=== PATIENT | male | born 1970 | race Caucasian/White ===

== ENCOUNTER 2018-04-21 09:37 | Observation (INO) ==
[2018-04-21] MEDS ORDERED: LORazepam 1 MG TAB PO STA ×2 (09:49→10:27)
[2018-04-21] MEDS ORDERED: SODIUM CHLORIDE 0.9% 1000ML 1,000 ML IV ONE (09:51)
[2018-04-21 10:07] LABS: Basophils # (auto) 0.01 K/uL (0-0.2); Basophils % (auto) 0.1 %; Eosinophils # (auto) 0.05 K/uL (0-0.5); Eosinophils % (auto) 0.5 %; Hematocrit (blood only) 45.4 % (42-52); Hemoglobin 15.8 g/dL (14.0-18.0); Immature Granulocytes # (auto) 0.02 K/uL (0.00-0.02); Immature Granulocytes % (auto) 0.2 %; Lymphocytes # (auto) 0.99 K/uL (1.2-3.4); Lymphocytes % (auto) 10.5 %; Mean Corpuscular Hgb Conc 34.8 g/dL (32-36); Mean Corpuscular Volume 90.1 fL (80-100); Mean Platelet Volume 9.6 fL (7.4-10.4); Monocytes # (auto) 0.42 K/uL (0.11-0.59); Monocytes % (auto) 4.5 %; Neutrophils # (auto) 7.93 K/uL (1.4-6.5); Neutrophils % (auto) 84.2 %; Platelet Count 278 K/uL (130-400); RDW Coefficient of Variation 12.5 % (11.5-14.5); RDW Standard Deviation 40.9 fL (36.4-46.3); Red Blood Count 5.04 M/uL (4.7-6.1); White Blood Count 9.42 K/uL (4.8-10.8)
[2018-04-21 10:10] LABS: Chloride 103 mmol/L (98-107); Potassium 3.7 mmol/L (3.5-5.1); Sodium 132 mmol/L (136-145)
[2018-04-21 10:15] LABS: Alanine Aminotransferase 57 U/L (12-78); Albumin Level 4.3 gm/dl (3.4-5.0); BUN Creatinine Ratio 12.1 (10-20); Blood Urea Nitrogen 13 mg/dl (7-18); Carbon Dioxide 22 mmol/L (21-32); Creatinine Clr Calc Pharmacy 97.3 ml/min; Est GFR (African American) 92.9; Est GFR (Non-African American) 80.2; Glucose 153 mg/dl (70-99); Magnesium 1.8 mg/dl (1.8-2.4)
[2018-04-21 10:26] LABS: Albumin Globulin Ratio 1.2 (0.9-2); Alkaline Phosphatase 43 U/L (45-117); Aspartate Aminotransferase 26 U/L (15-37); Bilirubin,Total 0.7 mg/dl (0.2-1); Globulin 3.7 gm/dl (2.5-4.0); Troponin I < 0.015 ng/ml (0-0.045)
--- NOTE | 2018-04-21 10:29 | XRay Report ---
XR chest 1V portable CLINICAL HISTORY: 47 years-old Male presenting with Chest Pain. TECHNIQUE: Portable upright AP view of the chest was obtained. COMPARISON: None. FINDINGS: Cardiac silhouette top normal in size. Lungs and pleural spaces clear. Degenerative changes of the th oracic spine. Upper abdomen normal. IMPRESSION: 1. No acute cardiopulmonary disease. Electronically signed by: Adam Rose M.D. 04/21/2018 10:28 AM
[2018-04-21] MEDS ORDERED: CITALOPRAM 20 MG TAB PO STA (12:57)
[2018-04-21] MEDS ORDERED: METOPROLOL TARTRATE 1 MG/ML VIAL IV PRN (13:02)
[2018-04-21] MEDS ORDERED: METOPROLOL TARTRATE 1 MG/ML VIAL IV STA (13:02)
--- NOTE | 2018-04-21 13:02 | History & Physical Report ---
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 Trop neg x1, serials pending EKG with T wave inversions laterally Stress ECHO pending, although if unable to obtain over the weekend can likely have CM set up outpt if EKG returns to normal (2) Abnormal EKG: EKG with T wave inversions laterally Stress ECHO Monitor on tele (3) Anxiety: Likely the cause of above Hx of citalopram use that was d/c'd due to loss of insurance Will resume today and advised that this is on the [employer] $4 plan Should likely become involved with outpt mental health services (4) Elevated BP without diagnosis of hypertension: No prior hx Related to anxiety vs true HTN Metoprolol PRN and monitor (5) Depression: Seems there is likely an underlying depression as well States that citalopram worked for both in the past As above Answer "I've had a good run." when asked about code status and elected for DNR/ DNI. When his mother questioned this decision, he stated "it is my choice". (6) Tobacco use disorder: Some day smoker Declines need for nicotine patch (7) Alcohol use: Likely binge drinking to self medicate No hx of withdrawal issues or daily drinking (8) Does not have health insurance: Advised that CM will help to arrange [facility] appt Also advised that citalopram is on [employer] $4 list (9) DVT prophylaxis: Ambulation as likely short duration of admission History of Present Illness Primary Care Provider: Junior Porras, DO 47 y/o M c/o chest soreness and SOB. Pt states that he has been under a lot of stress lately after his mother was recently hospitalized and d/c'd back to home with many changes to her medications, home nursing and therapies, and has generally needed more assistance. Pt states that on after he had his mother situated for the night in bed, he was trying to relax. He had several beers, several glasses of wine, and some Johnathon Casillas while he was watching music videos on [employer]. Pt states that "before I knew it, it was 7 or 8 in the morning and I hadn't slept". He states that he went upstairs to get breakfast and medications for his mother. He went outside to take care of the walk in preparation for [facility] to arrive for the morning and had no issues with any of this. Shortly after, he tried to lay down to relax and found that his heart was pounding rapidly in his chest and he felt very anxious. Then he was alerted that there was water leaking from a very old deep freezer in their basement, so he went downstairs to investigate this. He was getting very anxious about the possibility of their food spoiling, repair or replacement bills, etc and he noted that his heart racing and SOB were getting worse. He developed numbness to his L hand, sweating, foggy thought processing, and felt unsteady on his feet. He was ultimately able to troubleshoot and repair the freezer and thought he would relax, but then became further anxious worrying that the motor might overheat while the freezer recooled. He was also able to remedy this situation, but his anxiety continued. He tried to rest and was unable to do so. He thought that maybe alcohol was causing some of the heart racing and so he did not seek care yesterday. He was unable to sleep last night at all and his sx were worse this AM with the addition of chest soreness, so he came to the ED. Pt was given ativan x2 and is feeing much better. Pt states he has has panic attacks in the past, but nothing to this severity or extent. He states maybe two prior episodes and he was able to "bring myself down". He states that he used to be on citalopram when he followed with Dr. Porras. He states he was taking this for depression and anxiety and that it did help him. Pt stopped following with Dr. Porras after he had to quit his job to help take care of his father who had many medical issues, including 6 types of cancer, so he lost his health insurance. His father , but his mother has had health issues and so pt is still not working. Allergies Allergy/AdvReac Type Severity Reaction Status Date / Time No Known Allergies Allergy Unverified 04/21/18 10:48 Home Medications Home Medications Medication Instructions Recorded Confirmed Type No Known Home Medications 04/21/18 04/21/18 History Past Med/Surg History Medical History No known health problems Social History Current Living Situation: Parent Other Information That Helps Us Care for You: No Feels Safe at Home: Yes Smoking Status: Current some day smoker Cigarettes per Day: social use only, 1 pack lasts 3 weeks or more Hx Alcohol Use: Yes (binge drinking 2x per week) Alcohol type: beer, wine and hard liquor Alcohol Intake Frequency: a few times a week Hx Substance Use: No Beliefs That Will Affect Care: None Preferred Language: Czech Review of Systems Pertinent positives and negatives reviewed in HPI--all others negative Physical Exam 2 Vital Signs (Past 24 Hours): Last Vital Signs Temp 36.3 C L 04/21/18 09:41 Pulse 63 04/21/18 11:44 Resp 17 04/21/18 11:44 BP 171/94 H 04/21/18 11:44 Pulse Ox 98 04/21/18 11:44 Constitutional: WD/WN, vitals as above + obese Eyes: normal visual cook by confrontation and + anicteric sclerae Neck: normal visual inspection and trachea midline Respiratory: normal respiratory effort, lungs clear to auscultation Cardiovascular: Rate/Rhythm: regular rate and regular rhythm Gastrointestinal (Abdomen): Inspection/Auscultation: abdomen not distended Percussion/Palpation: abdomen soft; abdomen nontender Musculoskeletal: Head/Neck/Chest: normocephalic and head atraumatic negative for edema, peripheral pulses intact Skin: no rashes, warm and dry Neurologic: awake; not confused Speech / Cognition: normal speech Psychiatric: A+Ox3, euthymic affect Code Status & VTE Plan Code Status DNR/DNI--"I've had a good run." When his mother questioned this decision, he stated "it is my choice". VTE Prophylaxis Plan VTE Prophylaxis will be ordered: No
[2018-04-21] MEDS ORDERED: ONDANSETRON INJ 2 MG/ML 2 ML VIAL IV PRN (14:19)
[2018-04-21] MEDS ORDERED: ACETAMINOPHEN 325 MG TAB PO PRN (14:19)
[2018-04-21] MEDS ORDERED: MAGNESIUM HYDROXIDE SUSP 30 ML UDC PO PRN (14:19)
--- NOTE | 2018-04-21 15:49 | Emergency Department Note ---
Entered by Sarwat Doss acting as a scribe for History of Present Illness General Chief complaint: Shortness of Breath/Dyspnea Stated complaint: sob Source: patient History of Present Illness Provider complaint: chest pain Onset (ago): day(s) (yesterday around 1530) Location: chest Pain Consistency: + other (worsening) Quality: + dull Associated symptoms: + denies other symptoms (recent trauma to chest, dyspnea, calf tenderness), + nausea/vomiting (+nausea) and + other (shaky, anxious) The patient is a 47 year old male who presents to the Emergency Room with complaints of worsening chest pain that began around 1530 yesterday. The patient reports that his heart started racing after noticing that his freezer at home was leaking. He describes his pain as dull. The patient reports that he has had minor anxiety attacks before, but states that he can typically talk them down from it. The patient denies a history of cardiac issues of any kind and denies any recent trauma to his chest. The patient admits to being shaky and nauseous and states he has not eaten much since yesterday. He denies any dyspnea or calf tenderness. He states that he has been feeling anxious since the middle of March when his mother came home from the hospital and was placed in his care. The patient reports he was drinking beer and win the night before his symptoms started. He further reports that he typically drinks every 3 or 4 days and states that we he does, he gets relatively intoxicated. The patient states that he has not experienced withdrawal symptoms before. The patient denies any medical problems and states that he does not have medications he takes regularly. Home Medications Home Medications Medication Instructions Recorded Confirmed Type No Known Home Medications 04/21/18 04/21/18 History Allergies Allergy/AdvReac Type Severity Reaction Status Date / Time No Known Allergies Allergy Unverified 04/21/18 10:48 Past Med/Surg History Medical History No known health problems Social History Current Living Situation: Parent Other Information That Helps Us Care for You: No Feels Safe at Home: Yes Smoking Status: Current some day smoker Cigarettes per Day: social use only, 1 pack lasts 3 weeks or more Hx Alcohol Use: Yes (binge drinking 2x per week) Alcohol type: beer, wine and hard liquor Alcohol Intake Frequency: a few times a week Hx Substance Use: No Beliefs That Will Affect Care: None Preferred Language: Yemeni Review of Systems See HPI for pertinent positives & negatives. and A total of 10 systems reviewed and were otherwise negative Physical Exam Vital Signs Vital Signs - 24 hr 04/21/18 09:40 04/21/18 09:41 04/21/18 09:45 Temperature 36.3 C L Temperature Source Oral Sepsis Recent Fever Within 48 Hours No Sepsis New/Unexplained Change in Mental Status No Sepsis Action Taken by Nursing No Action Required Pulse Rate 70 69 Pulse Rate [Finger] Pulse Rhythm [Finger] Pulse Strength [Finger] Respiratory Rate 26 H 18 Respiratory Effort / Characteristics Respiratory Depth Respiratory Pattern Blood Pressure 182/116 H 182/116 H Blood Pressure [Right Arm] Blood Pressure Mean 138 138 Blood Pressure Mean [Right Arm] Blood Pressure Position [Right Arm] Pulse Oximetry 100 99 100 Oxygen Delivery Method Room Air Room Air 04/21/18 09:55 04/21/18 10:00 04/21/18 10:04 Temperature Temperature Source Sepsis Recent Fever Within 48 Hours Sepsis New/Unexplained Change in Mental Status Sepsis Action Taken by Nursing Pulse Rate 72 65 65 Pulse Rate [Finger] Pulse Rhythm [Finger] Pulse Strength [Finger] Respiratory Rate 25 H 22 19 Respiratory Effort / Characteristics Respiratory Depth Respiratory Pattern Blood Pressure 178/96 H Blood Pressure [Right Arm] Blood Pressure Mean 123 Blood Pressure Mean [Right Arm] Blood Pressure Position [Right Arm] Pulse Oximetry 100 99 100 Oxygen Delivery Method 04/21/18 10:10 04/21/18 10:20 04/21/18 10:26 Temperature Temperature Source Sepsis Recent Fever Within 48 Hours Sepsis New/Unexplained Change in Mental Status Sepsis Action Taken by Nursing Pulse Rate 61 57 L Pulse Rate [Finger] 56 L Pulse Rhythm [Finger] Pulse Strength [Finger] Respiratory Rate 19 14 18 Respiratory Effort / Characteristics Respiratory Depth Respiratory Pattern Blood Pressure Blood Pressure [Right Arm] 178/96 H Blood Pressure Mean Blood Pressure Mean [Right Arm] 123 Blood Pressure Position [Right Arm] Pulse Oximetry 99 95 99 Oxygen Delivery Method Room Air 04/21/18 10:30 04/21/18 10:31 04/21/18 10:40 Temperature Temperature Source Sepsis Recent Fever Within 48 Hours Sepsis New/Unexplained Change in Mental Status Sepsis Action Taken by Nursing Pulse Rate 59 L 54 L 54 L Pulse Rate [Finger] Pulse Rhythm [Finger] Pulse Strength [Finger] Respiratory Rate 17 15 18 Respiratory Effort / Characteristics Respiratory Depth Respiratory Pattern Blood Pressure 170/101 H Blood Pressure [Right Arm] Blood Pressure Mean 124 Blood Pressure Mean [Right Arm] Blood Pressure Position [Right Arm] Pulse Oximetry 98 100 97 Oxygen Delivery Method 04/21/18 10:50 04/21/18 11:00 04/21/18 11:01 Temperature Temperature Source Sepsis Recent Fever Within 48 Hours Sepsis New/Unexplained Change in Mental Status Sepsis Action Taken by Nursing Pulse Rate 58 L 63 61 Pulse Rate [Finger] Pulse Rhythm [Finger] Pulse Strength [Finger] Respiratory Rate 12 17 19 Respiratory Effort / Characteristics Respiratory Depth Respiratory Pattern Blood Pressure 168/90 H Blood Pressure [Right Arm] Blood Pressure Mean 116 Blood Pressure Mean [Right Arm] Blood Pressure Position [Right Arm] Pulse Oximetry 92 96 96 Oxygen Delivery Method 04/21/18 11:02 04/21/18 11:10 04/21/18 11:20 Temperature Temperature Source Sepsis Recent Fever Within 48 Hours Sepsis New/Unexplained Change in Mental Status Sepsis Action Taken by Nursing Pulse Rate 63 65 Pulse Rate [Finger] 60 Pulse Rhythm [Finger] Pulse Strength [Finger] Respiratory Rate 16 18 17 Respiratory Effort / Characteristics Respiratory Depth Respiratory Pattern Blood Pressure Blood Pressure [Right Arm] 168/90 H Blood Pressure Mean Blood Pressure Mean [Right Arm] 116 Blood Pressure Position [Right Arm] Pulse Oximetry 96 95 99 Oxygen Delivery Method Room Air 04/21/18 11:30 04/21/18 11:31 04/21/18 11:44 Temperature Temperature Source Sepsis Recent Fever Within 48 Hours Sepsis New/Unexplained Change in Mental Status Sepsis Action Taken by Nursing Pulse Rate 63 62 65 Pulse Rate [Finger] 63 Pulse Rhythm [Finger] Pulse Strength [Finger] Respiratory Rate 15 16 18 Respiratory Effort / Characteristics Respiratory Depth Respiratory Pattern Blood Pressure 172/95 H 171/94 H Blood Pressure [Right Arm] 171/94 H Blood Pressure Mean 120 119 Blood Pressure Mean [Right Arm] 119 Blood Pressure Position [Right Arm] Pulse Oximetry 97 98 Oxygen Delivery Method Room Air 04/21/18 11:50 04/21/18 12:00 04/21/18 12:01 Temperature Temperature Source Sepsis Recent Fever Within 48 Hours Sepsis New/Unexplained Change in Mental Status Sepsis Action Taken by Nursing Pulse Rate 61 60 59 L Pulse Rate [Finger] Pulse Rhythm [Finger] Pulse Strength [Finger] Respiratory Rate 26 H 16 16 Respiratory Effort / Characteristics Respiratory Depth Respiratory Pattern Blood Pressure 165/101 H Blood Pressure [Right Arm] Blood Pressure Mean 122 Blood Pressure Mean [Right Arm] Blood Pressure Position [Right Arm] Pulse Oximetry 98 97 98 Oxygen Delivery Method 04/21/18 12:10 04/21/18 12:20 04/21/18 12:30 Temperature Temperature Source Sepsis Recent Fever Within 48 Hours Sepsis New/Unexplained Change in Mental Status Sepsis Action Taken by Nursing Pulse Rate 66 71 67 Pulse Rate [Finger] Pulse Rhythm [Finger] Pulse Strength [Finger] Respiratory Rate 15 22 22 Respiratory Effort / Characteristics Respiratory Depth Respiratory Pattern Blood Pressure 194/97 H Blood Pressure [Right Arm] Blood Pressure Mean 129 Blood Pressure Mean [Right Arm] Blood Pressure Position [Right Arm] Pulse Oximetry 98 98 96 Oxygen Delivery Method 04/21/18 12:40 04/21/18 12:50 04/21/18 12:58 Temperature Temperature Source Sepsis Recent Fever Within 48 Hours Sepsis New/Unexplained Change in Mental Status Sepsis Action Taken by Nursing Pulse Rate 69 73 Pulse Rate [Finger] 68 Pulse Rhythm [Finger] Pulse Strength [Finger] Respiratory Rate 11 L 14 15 Respiratory Effort / Characteristics Respiratory Depth Respiratory Pattern Blood Pressure Blood Pressure [Right Arm] 190/111 H Blood Pressure Mean Blood Pressure Mean [Right Arm] 137 Blood Pressure Position [Right Arm] Pulse Oximetry 98 97 98 Oxygen Delivery Method Room Air 04/21/18 12:59 04/21/18 13:01 04/21/18 13:02 Temperature Temperature Source Sepsis Recent Fever Within 48 Hours Sepsis New/Unexplained Change in Mental Status Sepsis Action Taken by Nursing Pulse Rate 68 65 69 Pulse Rate [Finger] Pulse Rhythm [Finger] Pulse Strength [Finger] Respiratory Rate 14 20 14 Respiratory Effort / Characteristics Respiratory Depth Respiratory Pattern Blood Pressure 190/111 H 177/99 H Blood Pressure [Right Arm] Blood Pressure Mean 137 125 Blood Pressure Mean [Right Arm] Blood Pressure Position [Right Arm] Pulse Oximetry 96 96 95 Oxygen Delivery Method 04/21/18 13:10 04/21/18 13:15 04/21/18 13:20 Temperature Temperature Source Sepsis Recent Fever Within 48 Hours Sepsis New/Unexplained Change in Mental Status Sepsis Action Taken by Nursing Pulse Rate 69 76 56 L Pulse Rate [Finger] Pulse Rhythm [Finger] Pulse Strength [Finger] Respiratory Rate 15 14 Respiratory Effort / Characteristics Respiratory Depth Respiratory Pattern Blood Pressure 177/99 H Blood Pressure [Right Arm] Blood Pressure Mean Blood Pressure Mean [Right Arm] Blood Pressure Position [Right Arm] Pulse Oximetry 98 95 Oxygen Delivery Method 04/21/18 13:30 04/21/18 13:31 04/21/18 13:40 Temperature Temperature Source Sepsis Recent Fever Within 48 Hours Sepsis New/Unexplained Change in Mental Status Sepsis Action Taken by Nursing Pulse Rate 57 L 59 L 74 Pulse Rate [Finger] Pulse Rhythm [Finger] Pulse Strength [Finger] Respiratory Rate 16 15 18 Respiratory Effort / Characteristics Respiratory Depth Respiratory Pattern Blood Pressure 177/108 H Blood Pressure [Right Arm] Blood Pressure Mean 131 Blood Pressure Mean [Right Arm] Blood Pressure Position [Right Arm] Pulse Oximetry 95 96 Oxygen Delivery Method 04/21/18 13:51 04/21/18 14:20 Temperature 37.1 C Temperature Source Oral Sepsis Recent Fever Within 48 Hours Sepsis New/Unexplained Change in Mental Status Sepsis Action Taken by Nursing Pulse Rate 74 Pulse Rate [Finger] 64 Pulse Rhythm [Finger] Regular Pulse Strength [Finger] Normal Respiratory Rate 18 18 Respiratory Effort / Characteristics Non-Labored Spontaneous Respiratory Depth Normal Respiratory Pattern Regular Blood Pressure Blood Pressure [Right Arm] 182/106 H Blood Pressure Mean Blood Pressure Mean [Right Arm] 131 Blood Pressure Position [Right Arm] Sitting Pulse Oximetry 94 Oxygen Delivery Method Room Air Room Air General: Mildly-anxious appearing middle aged male in no acute distress. HEENT: Normal cephalic atraumatic. Pupils are equal round and reactive to light. Extraocular movements are intact. Oropharynx is pink with moist mucous membranes. No swelling of the mouth lips or tongue. Neck: Supple with a midline trachea. No meningeal signs or stiffness, no JVD or bruits. No Stridor. Chest: Clear to auscultation bilaterally. No wheezes or rhonchi. No increased work of breathing. Heart: regular rate and rhythm. Abdomen: Soft nontender, nondistended without rebound guarding or rigidity. Extremities: No cyanosis clubbing or edema. No calf tenderness or assymetry Spine/Back. Non tender to palpation. No CVA tenderness Skin: Good turgor without rashes. Neurologic exam: Cranial nerves two through 12 are intact. Motor and sensation are intact and symmetrical throughout. Course 0939: Past medical records reviewed. The patient was evaluated in room B9, and a complete history and physical examination were performed. 1150: I spoke with the patient and he stated he is willing to stay in the hospital for further evaluation. 1200: I reviewed the patient's case with Dr. Solis, [facility] Hospitalist. She will evaluate the patient for further management. Consultations Consultation #1: Dr. Solis, [facility] Hospitalist Time: 12:00 Administered Medications Discontinued Medications Citalopram Hydrobromide (Celexa) 10 mg PO NOW STA Stop: 04/21/18 12:58 Last Admin: 04/21/18 13:14 Dose: 10 mg Sodium Chloride (Nss 1000ml) 1,000 mls @ 999 mls/hr IV .Q1H1M ONE Stop: 04/21/18 10:51 Last Infusion: 04/21/18 11:02 Dose: 0 mls/hr Admin: 04/21/18 10:01 Dose: 999 mls/hr Lorazepam (Ativan) 1 mg PO NOW STA Stop: 04/21/18 09:50 Last Admin: 04/21/18 10:01 Dose: 1 mg Lorazepam (Ativan) 1 mg PO NOW STA Stop: 04/21/18 10:28 Last Admin: 04/21/18 11:00 Dose: 1 mg Metoprolol Tartrate (Lopressor) 5 mg IV NOW STA Stop: 04/21/18 13:03 Last Admin: 04/21/18 13:15 Dose: 5 mg Medical Decision Making Differential Diagnosis Differential: Arrhythmia, acute coronary syndrome, electrolyte metabolic abnormality, anxiety , pulmonary embolism, thyroid disease, alcohol withdrawal. Medical Records Attestation: I reviewed the patient's medical records. Home Medications Current Medication List: was personally reviewed by me Laboratory Data Attestation: I reviewed the patient's lab results. Result diagrams: 04/21/18 09:45 04/21/18 09:45 Lab Results 04/21/18 04/21/18 04/21/18 Range/Units 09:45 09:45 09:45 WBC 9.42 (4.8-10.8) K/uL RBC 5.04 (4.7-6.1) M/uL Hgb 15.8 (14.0-18.0) g/dL Hct 45.4 (42-52) % MCV 90.1 (80-100) fL MCH 31.3 (25-34) pg MCHC 34.8 (32-36) g/dL RDW Std Deviation 40.9 (36.4-46.3) fL RDW Coeff of Naresh 12.5 (11.5-14.5) % Plt Count 278 (130-400) K/uL MPV 9.6 (7.4-10.4) fL Immature Gran % (Auto) 0.2 % Neut % (Auto) 84.2 % Lymph % (Auto) 10.5 % [place] % (Auto) 4.5 % Eos % (Auto) 0.5 % Baso % (Auto) 0.1 % Immature Gran # (Auto) 0.02 (0.00-0.02) K/uL Neut # (Auto) 7.93 H (1.4-6.5) K/uL Lymph # (Auto) 0.99 L (1.2-3.4) K/uL [place] # (Auto) 0.42 (0.11-0.59) K/uL Eos # (Auto) 0.05 (0-0.5) K/uL Baso # (Auto) 0.01 (0-0.2) K/uL D-Dimer < 190 (0-500) ug/L FEU Sodium 132 L (136-145) mmol/L Potassium 3.7 (3.5-5.1) mmol/L Chloride 103 (98-107) mmol/L Carbon Dioxide 22 (21-32) mmol/L Anion Gap 7.0 (3-11) BUN 13 (7-18) mg/dl Creatinine 1.08 (0.6-1.4) mg/dl Est Cr Clr Drug Dosing 97.3 ml/min Est GFR ( Amer) 92.9 Est GFR (Non-Af Amer) 80.2 BUN/Creatinine Ratio 12.1 (10-20) Glucose 153 H (70-99) mg/dl Calcium 9.0 (8.5-10.1) mg/dl Magnesium 1.8 (1.8-2.4) mg/dl Total Bilirubin 0.7 (0.2-1) mg/dl AST 26 (15-37) U/L ALT 57 (12-78) U/L Alkaline Phosphatase 43 L (45-117) U/L POC Troponin I (0-0.045) ng/ml Troponin I < 0.015 (0-0.045) ng/ml Total Protein 8.0 (6.4-8.2) gm/dl Albumin 4.3 (3.4-5.0) gm/dl Globulin 3.7 (2.5-4.0) gm/dl Albumin/Globulin Ratio 1.2 (0.9-2) Lipase 128 (73-393) U/L TSH 1.500 (0.300-4.500) uIu/ml 04/21/18 04/21/18 04/21/18 Range/Units 09:45 11:46 14:38 WBC (4.8-10.8) K/uL RBC (4.7-6.1) M/uL Hgb (14.0-18.0) g/dL Hct (42-52) % MCV (80-100) fL MCH (25-34) pg MCHC (32-36) g/dL RDW Std Deviation (36.4-46.3) fL RDW Coeff of Naresh (11.5-14.5) % Plt Count (130-400) K/uL MPV (7.4-10.4) fL Immature Gran % (Auto) % Neut % (Auto) % Lymph % (Auto) % [place] % (Auto) % Eos % (Auto) % Baso % (Auto) % Immature Gran # (Auto) (0.00-0.02) K/uL Neut # (Auto) (1.4-6.5) K/uL Lymph # (Auto) (1.2-3.4) K/uL [place] # (Auto) (0.11-0.59) K/uL Eos # (Auto) (0-0.5) K/uL Baso # (Auto) (0-0.2) K/uL D-Dimer (0-500) ug/L FEU Sodium (136-145) mmol/L Potassium (3.5-5.1) mmol/L Chloride (98-107) mmol/L Carbon Dioxide (21-32) mmol/L Anion Gap (3-11) BUN (7-18) mg/dl Creatinine (0.6-1.4) mg/dl Est Cr Clr Drug Dosing ml/min Est GFR ( Amer) Est GFR (Non-Af Amer) BUN/Creatinine Ratio (10-20) Glucose (70-99) mg/dl Calcium (8.5-10.1) mg/dl Magnesium (1.8-2.4) mg/dl Total Bilirubin (0.2-1) mg/dl AST (15-37) U/L ALT (12-78) U/L Alkaline Phosphatase (45-117) U/L POC Troponin I < 0.03 (0-0.045) ng/ml Troponin I < 0.015 (0-0.045) ng/ml Total Protein (6.4-8.2) gm/dl Albumin (3.4-5.0) gm/dl Globulin (2.5-4.0) gm/dl Albumin/Globulin Ratio (0.9-2) Lipase (73-393) U/L TSH Cancelled (0.300-4.500) uIu/ml Imaging Data Radiologist's Impression: Radiology results as stated below per my review and the radiologist's interpretation: XR chest 1V portable CLINICAL HISTORY: 47 years-old Male presenting with Chest Pain. TECHNIQUE: Portable upright AP view of the chest was obtained. COMPARISON: None. FINDINGS: Cardiac silhouette top normal in size. Lungs and pleural spaces clear. Degenerative changes of the thoracic spine. Upper abdomen normal. IMPRESSION: 1. No acute cardiopulmonary disease. Electronically signed by: Adam Rose M.D. 04/21/2018 10:28 AM ECG Data Attestation: I personally reviewed and interpreted this ECG as follows: Indication: chest pain Rate (beats per minute): 81 Rhythm: normal sinus Findings: no acute ischemic change and no ectopy Comparison ECG Date: no prior available Additional Comments: EKG #2: Sinus bradycardia, rate of 55, late T-wave inversion which is new compated to EKG #1. Blood Pressure Blood Pressure Findings: Elevated blood pressure Blood Pressure Disposition: further management by hospitalist [facility] Narrative This patient comes in as described above. He has had some chest pain shortness of breath and palpitations since yesterday feels like his heart is beating fast. He says he does drink alcohol about every 3 days and has had no withdrawal symptoms before. he does not see a doctor very frequently. He has had some stress and anxiety due to his mother's health issues recently. He was placed on a clam picker room B9. He says it feels like his heart is beating fast however he is non-tachycardic. initially, he was on the hypertensive side however he was given Ativan sublingual x1 and it helped although he still felt anxious and was given additional sublingual Ativan and was resting comfortably after this. His initial EKG was unremarkable. Cardiac biomarkers are unremarkable thus far chest x-ray does not show congestive heart failure, pneumonia, or pneumothorax. His d-dimer is within normal limits and a low pretest probability study makes PE highly unlikely. His second EKG however did have lateral T wave inversions which are new compared to the first. In light of this, I do think he should be admitted/observe for further inpatient treatment and evaluation to rule out a cardiac event. I have consulted Dr. Solis to see him in the ER for these measures. The patient is agreeable to the plan. Impression & Plan Chest pain, Anxiety, Acute electrocardiogram changes Discharge Plan Visit Data *Final* Discharge Date/Time: 04/21/18 13:51 Chief Complaint: Shortness of Breath/Dyspnea Stated Complaint: sob ED Provider: Ashish Poole Discharge Problem: Chest pain, Anxiety, Acute electrocardiogram changes Patient Disposition: Admitted As Inpatient Discharge Instructions Interventions: ED Discharge Assessment Last Done: 04/21/18 13:51 The scribe's documentation has been prepared under my direction and personally reviewed by me in its entirety. I confirm that the note above accurately reflects all work, treatment, procedures, and medical decision making performed by me.
[2018-04-22 06:37] LABS: Chol HDL Ratio 4; Cholesterol 216 mg/dl (0-200); HDL Cholesterol 50 mg/dl; LDL Cholesterol Calculated 136 mg/dl; Triglycerides 152 mg/dl (0-150); VLDL Cholesterol 30 mg/dl
[2018-04-22] MEDS ORDERED: CITALOPRAM 20 MG TAB PO SCH (09:00)
[2018-04-22] MEDS ORDERED: LISINOPRIL 10 MG TAB PO SCH (11:00)
--- NOTE | 2018-04-22 15:28 | Discharge Summary ---
Date of Service April 22, 2018 Admission HPI Per Admitting Provider 47 y/o M c/o chest soreness and SOB. Pt states that he has been under a lot of stress lately after his mother was recently hospitalized and d/c'd back to home with many changes to her medications, home nursing and therapies, and has generally needed more assistance. Pt states that on after he had his mother situated for the night in bed, he was trying to relax. He had several beers, several glasses of wine, and some Johnathon Casillas while he was watching music videos on [employer]. Pt states that "before I knew it, it was 7 or 8 in the morning and I hadn't slept". He states that he went upstairs to get breakfast and medications for his mother. He went outside to take care of the walk in preparation for [facility] to arrive for the morning and had no issues with any of this. Shortly after, he tried to lay down to relax and found that his heart was pounding rapidly in his chest and he felt very anxious. Then he was alerted that there was water leaking from a very old deep freezer in their basement, so he went downstairs to investigate this. He was getting very anxious about the possibility of their food spoiling, repair or replacement bills, etc and he noted that his heart racing and SOB were getting worse. He developed numbness to his L hand, sweating, foggy thought processing, and felt unsteady on his feet. He was ultimately able to troubleshoot and repair the freezer and thought he would relax, but then became further anxious worrying that the motor might overheat while the freezer recooled. He was also able to remedy this situation, but his anxiety continued. He tried to rest and was unable to do so. He thought that maybe alcohol was causing some of the heart racing and so he did not seek care yesterday. He was unable to sleep last night at all and his sx were worse this AM with the addition of chest soreness, so he came to the ED. Pt was given ativan x2 and is feeing much better. Pt states he has has panic attacks in the past, but nothing to this severity or extent. He states maybe two prior episodes and he was able to "bring myself down". He states that he used to be on citalopram when he followed with Dr. Porras. He states he was taking this for depression and anxiety and that it did help him. Pt stopped following with Dr. Porras after he had to quit his job to help take care of his father who had many medical issues, including 6 types of cancer, so he lost his health insurance. His father , but his mother has had health issues and so pt is still not working. Principal Diagnosis anxiety Discharge Exam Constitutional WD/WN, vitals as above Eyes PERRL, conjunctivae normal, anicteric sclerae ENMT external ear and nose normal, oropharynx normal Respiratory normal respiratory effort, lungs clear to auscultation Cardiovascular RRR, no murmur, no edema Gastrointestinal (Abdomen) normal bowel sounds, soft, nontender, no hepatosplenomegaly Skin no rashes, warm and dry Psychiatric A+Ox3, euthymic affect Discharge Data Allergies Allergy/AdvReac Type Severity Reaction Status Date / Time No Known Allergies Allergy Unverified 04/21/18 10:48 Consultations 04/21/18 11:57 ED Decision to Admit Stat 04/21/18 14:19 Consult Case Management - Discharge Planning Routine Hospital Course (1) Abnormal EK47 y/o M with PMH anxiety and depression presented to [facility] ER on 04/21 with complaints of chest soreness and SOB from previous day. Pt stated that he had been under a lot of stress lately after his mother was recently hospitalized and d/c'd back to home with many changes to her medications, home nursing and therapies, and he has generally needed more assistance. Pt had an episode where he developed numbness to his L hand, diaphoresis, foggy thought processing , and unsteadiness on his feet. Pt had 7-8 beers/Johnathon/wine glasses as self- treatment as well and he thought that maybe alcohol was causing some of the heart racing and so he did not seek care before admission to ER the day before. He was unable to sleep previous night at all and his sx were worse this AM with the addition of chest soreness, so he came to the ED. In ER, pt was given ativan x2 and reported feeing much better. CXR was normal, EKG showed lateral T wave inversions. Pt was admitted and the following was the course of his medical management: 1) Chest pain -Likely related to palpitations that are related to anxiety, resolved on admission. 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 Pt advised that this is on the [employer]t $4 plan -Pt advised that he should consider outpt mental health services 3) HTN - No prior hx reported -Anxiety vs true HTN needs to be further worked up on outpt. Likely has underlying diagnosis of HTN, and anxiety worsens it - Given Metoprolol PRN and Lisinopril 10 mg -BP was in 160s-170s range still after tx -Pt will go home on Lisinopril 20 mg daily. This management will be f/u as outpt 4)Alcohol/ Tobacco use disorder: -pt admits some day smoker, but declined need for nicotine patch -Likely binge drinking to self medicate. No hx of withdrawal issues or daily drinking -both issues need to be f/u as outpt 5) HLD -Cholesterol [id number], Triglycerides was 152 -diet/exercise couseling given to pt. This will need to be f/u as outpt -Pt will go home on atorvastatin 20 mg PO daily DVT prophylaxis was ambulation. Case Management worked with and educated pt: Helped to arrange [facility] appt and advised that citalopram is on [employer] $4 list. [facility] will reach out to pt on d/c. Pt advised to take atorvastatin 20 mg PO and lisinopril 20 mg Daily along with citalopram 10 mg daily. Scripts given. At time of d/c, pt reports no other acute concerns or complaints. Pt advised to come back to ER if symptoms persist/worsen. Total Time Total Time Spent Total Time Spent (In Minutes): 30 min Discharge Plan Discharge Items Patient Disposition: Home - Self-Care Reason For Visit: SOB/CP Discharge Diagnosis: anxiety Discharge Goals: Decrease discomfort and Improve function Activity: Per 'Additional Instructions' section Lifting: Gradually increase as tolerated Non-emergency contact: Primary Care Provider Call non-emergency contact if: you have any medication questions and your symptoms worsen Diet: Heart Healthy Addtl Provider Instructions: You were admitted for anxiety/chest pain. Your EKG showed some areas of ischemia , but your troponins (heart injury marker) were all negative. Your negative history of family cardiac issues, combined with your resolution of symptoms, and previous ability to stress your heart without issue led us to be able to discharge you. However, the following needs to be followed on discharge: -Case management has helped to arrange [facility] appt and advised that citalopram is on [employer] $4 list. [facility] will reach out to you for appt set up. -You will take atorvastatin 20 mg PO for high cholesterol -You will take lisinopril 20 mg PO for high blood pressure -If your symptoms worsen or persist, please come back to ER Prescriptions: New lisinopril 20 mg tablet 20 mg PO DAILY Qty: 30 RF: 0 atorvastatin 20 mg tablet 20 mg PO DAILY Qty: 30 RF: 0 No Action No Known Home Medications RF: 0 Stand-Alone Forms: [facility] Discharge Orders: Discharge Order (Routine); Ordered 04/22/18 Ordered By: Placido Sung Admission Data Admit Date/Time: 04/21/18 12:57 Attending Provider: Surinder Schultz Admit Provider: Marion Solis Primary Care Provider: Junior Porras Other Providers: Marion Solis Service: Telemetry Other Interventions: Discharge Summary Assessment (RN) Last Done: 04/22/18 15:32 Supervising Physician Co-Signing Physician Notes Attending attestation Pt seen and examined in concert with Dr. Sung. In agreement with the documented findings as noted in the resident documentation with any exceptions or additions as noted here. Resolution of symptoms overnight following administration of ativan, though baseline anxiety persists and speech is somewhat pressured. Reports no family history of cardiovascular disease. Diet is somewhat high in sodium and caloric content over exertional norm. On examination, S1/S2 nl RRR no MCG. CTAB. CNII-XII grossly intact as tested. Abd NT/ND BS +ve Chest pain - troponins negative x 3, EKG with nonspecific Twave abnormality. Atypical chest pain symptoms resolved. After discussion with patient, risk appears low for cardiac event so will recommend outpatient stress echo at rapid establish/follow up with [facility]. Elevated BP - likely underlying HTN v. anxiety induced - start low dose ACEI on discharge and follow with primary care Hyperlipidemia - risk elevated 2/2 smoking history and BP - moderate dose statin therapy ordered on discharge Anxiety/depression - restart citalopram and follow with primary care. Precautions re: mood swings/SI/HI Else per resident documentation as noted. Resident Activity Tracking Resident Involvement: Resident Care Provided Care Provided: Adult Hospital Medicine
[2018-04-23 06:58] LABS: Estimated Average Glucose 126 mg/dl
== END 2018-04-22 16:35 | disposition home or self-care (01) ==
LOC: ED 09:37 → 2E 09:37